=== PATIENT | female | born 1950 | race Caucasian/White ===

== ENCOUNTER 2017-04-08 16:35 | Emergency (ER) | payer MEDICAID, MEDICARE ==
--- NOTE | 2017-04-08 18:17 | EDM.PDOC ---
ED HPI GENERAL MEDICAL PROBLEM - General Chief Complaint: Lower Extremity Injury/Pain Stated Complaint: FALL Time Seen by Provider: 04/08/17 18:00 Source of Information: Reports: Patient, Family History Limitations: Reports: No Limitations - History of Present Illness INITIAL COMMENTS - FREE TEXT/NARRATIVE: 66-year-old female was stepping over a branch that was lying on the ground and caught her foot and stumbled. She fell onto her left side. She arrives with left shoulder pain, left hip pain and especially left knee pain. She was able to get up and walk into the car with the assistance from her . She thought she felt something "pop" in her knee and it's difficult to bend the knee. No abdominal pain, neck pain or head injury. Onset: Sudden Duration: Hour(s): (Within the last 2 hours) Severity: Moderate Associated Symptoms: Reports: No Other Symptoms Left Knee Pain Score (Numeric/FACES): 10 - Related Data Allergies Allergy/AdvReac Type Severity Reaction Status Date / Time acetaminophen [From Tylenol] Allergy Nausea and Verified 04/08/17 17:28 Vomiting adhesive tape Allergy Itching Verified 04/08/17 17:28 cefuroxime [From Ceftin] Allergy Itching Verified 04/08/17 17:28 celecoxib Allergy Cannot Verified 04/08/17 17:28 Remember clarithromycin Allergy Cannot Verified 04/08/17 17:28 Remember morphine Allergy Nausea and Verified 04/08/17 17:28 Vomiting Home Meds: Home Meds Albuterol [Proventil Neb Soln] 04/08/17 [History] Fluticasone Propionate [Flovent Hfa] 04/08/17 [History] Past Medical History HEENT History: Reports: Sinusitis Respiratory History: Reports: COPD [employer] History: Reports: Musculoskeletal History: Reports: Fracture - Past Surgical History Female Surgical History: Reports: Section, Hysterectomy Social & Family History - Tobacco Use Smoking Status *Q: Never Smoker - Caffeine Use Caffeine Use: Reports: Coffee, Tea - Recreational Drug Use Recreational Drug Use: No Review of Systems - Review of Systems Review Of Systems: See Below Constitutional: Denies: Fever Respiratory: Denies: Shortness of Breath Cardiovascular: Denies: Chest Pain GI/Abdominal: Denies: Abdominal Pain Skin: Reports: Bruising (A few superficial bruises and abrasions on the knee and elbow) Neurological: Denies: Headache Psychiatric: Reports: No Symptoms ED EXAM, GENERAL - Physical Exam Exam: See Below Exam Limited By: No Limitations General Appearance: Alert, No Apparent Distress (Fairly comfortable when lying still) Neck: Supple Respiratory/Chest: No Respiratory Distress, Lungs Clear Cardiovascular: Regular Rate, Rhythm GI/Abdominal: Soft Extremities: Other (Tender to palpation across the upper humerus but no crepitus or deformity. Tender to palpation over the lateral left hip but also no deformity. She has an abrasion on the anterior aspect of the left knee, no significant effusion or deformity. It's hard to examine because even the lightest palpation or passive motion causes her to have significant pain.) Course - Vital Signs Last Recorded V/S: Last Vital Signs Temp 96.0 F 04/08/17 17:15 Pulse 71 04/08/17 17:15 Resp 18 04/08/17 17:15 BP 165/87 H 04/08/17 17:15 Pulse Ox 98 04/08/17 17:15 - Orders/Labs/Meds Orders: Active Orders 24 hr Category Date Time Status Hip Min 2V or 3V Lt [CR] Stat Exams 04/08/17 17:33 Taken Knee 1V or 2V Lt [CR] Stat Exams 04/08/17 17:38 Taken Shoulder Comp Lt [CR] Stat Exams 04/08/17 17:29 Taken DME for Discharge [COMM] Stat Oth 04/08/17 18:26 Ordered - Re-Assessments/Exams Free Text/Narrative Re-Assessment/Exam: 04/08/17 18:17 Knee x-ray, left hip x-ray and left shoulder x-ray were obtained and all were normal. Reexamination of the knee confirmed intact patellar tendons. A four- inch Jj wrap was applied to the knee and we attempted to see if the patient could ambulate with a walker. 04/08/17 18:28 Patient actually did fairly well with a walker. She declined any pain medications, copies of the x-rays were done and she will recheck at [place] where her primary care provider is if not improving satisfactorily. Departure - Departure Time of Disposition: 18:48 Disposition: Home, Self-Care 01 Condition: Fair Clinical Impression: Contusion of knee, left Qualifiers: Encounter type: initial encounter Qualified Code(s): S80.02XA - Contusion of left knee, initial encounter Contusion of shoulder, left Qualifiers: Encounter type: initial encounter Qualified Code(s): S40.012A - Contusion of left shoulder, initial encounter Contusion of hip, left Qualifiers: Encounter type: initial encounter Qualified Code(s): S70.02XA - Contusion of left hip, initial encounter - Discharge Information Instructions: Knee Pain, Adult Referrals: PCP,None [Primary Care Provider] - Forms: ED Department Discharge Care Plan Goals: Use crutches the next several days until able to ambulate without. Continue to wrap the knee for support and increase activity as tolerated. Ice to sore areas for the first 48 hours may help. Recheck with your regular provider in 3-6 days if not improving satisfactorily. Take x-ray copies with you to recheck. - My Orders Last 24 Hours: My Active Orders 04/08/17 17:29 Shoulder Comp Lt [CR] Stat 04/08/17 17:33 Hip Min 2V or 3V Lt [CR] Stat 04/08/17 17:38 Knee 1V or 2V Lt [CR] Stat 04/08/17 18:26 DME for Discharge [COMM] Stat - Assessment/Plan Last 24 Hours: My Active Orders 04/08/17 17:29 Shoulder Comp Lt [CR] Stat 04/08/17 17:33 Hip Min 2V or 3V Lt [CR] Stat 04/08/17 17:38 Knee 1V or 2V Lt [CR] Stat 04/08/17 18:26 DME for Discharge [COMM] Stat
--- NOTE | 2017-04-09 08:35 | CR ---
Shoulder Comp Lt HISTORY: injury FINDINGS: No acute fracture or dislocation is identified. Bony architecture is preserved. Mild inferior osteo phyte formation is seen at the glenoid process of the scapula. AC joint is not widened. Left upper ch est is clear. Soft tissues are unremarkable. IMPRESSION: Mild degenerative changes. No acute left shoulder abnormality is identified.
--- NOTE | 2017-04-09 08:37 | CR ---
Hip Min 2V or 3V Lt HISTORY: injury FINDINGS: No acute fracture or dislocation is identified. There are marginal osteophytes about the left hip. No joint effusion is seen. Soft tissues are unremarkable. IMPRESSION: Degenerative changes left hip. No fracture or other acute abnormality is identified.
--- NOTE | 2017-04-09 08:39 | CR ---
Knee 1V or 2V Lt HISTORY: knee injury FINDINGS: Portable views were obtained. No acute fracture or dislocation is identified. Bony structures appear somewhat osteopenic. No joint effusion is seen. No joint space narrowing or hypertrophic changes are noted. Soft tissues are unre markable. IMPRESSION: No acute left knee abnormality identified.
== END 2017-04-08 18:54 | disposition home or self-care (01) ==
LOC: JP.ED 16:35
DX: S80.02XA Contusion of left knee, initial encounter (principal); S40.012A Contusion of left shoulder, initial encounter; S70.02XA Contusion of left hip, initial encounter; Z88.1 Allergy status to other antibiotic agents; Z88.5 Allergy status to narcotic agent; Z88.8 Allergy status to other drugs, medicaments and biological substances; W19.XXXA Unspecified fall, initial encounter
CPT/HCPCS: 73030-26-LT; 73030-LT; 73502-26-LT; 73502-LT; 73560-26-LT; 73560-LT; 99284